=== PATIENT | female | born 1965 | race Caucasian/White ===

== ENCOUNTER → 2024-10-20 | Outpatient (CLI) | payer OTHER, SELFPAY ==
--- NOTE | 2024-10-20 12:19 | EKG_ITS ---
[facility] Test Date: 2024-10-20 Pat Name: COLBY EDEN Department: Room: - Gender: Female [employer]: RT STUDENT : 1965 Requested By: Mateusz Marshall Order Number: [id number] Reading MD: Mateusz Marshall Measurements Intervals [place] Rate: 63 P: 55 AR: 159 QRS: -43 QRSD: 115 T: 58 QT: 409 QTc: 420 Interpretive Statements SINUS RHYTHM POSSIBLE LEFT ATRIAL ENLARGEMENT MARKED LEFT AXIS DEVIATION INCOMPLETE RIGHT BUNDLE BRANCH BLOCK Compared to ECG 07/20/2023 11:08:18 Incomplete right bundle-branch block now present Sinus bradycardia no longer present ST (T wave) deviation no longer present /store/S0/[id number]/ecg/[id number].pdf
== END | disposition home or self-care (01) ==
PROVIDERS: PCP Internal Medicine; Referring Provider Student in an Organized Health Care Education/Training Program; Visit Provider Student in an Organized Health Care Education/Training Program
DX: Z01.818 Encounter for other preprocedural examination (principal); H25.042 Posterior subcapsular polar age-related cataract, left eye
CPT/HCPCS: 93005